=== PATIENT | female | born 1985 | race Caucasian/White ===

== ENCOUNTER 2019-03-12 11:30 | Day surgery (SDC) | payer OTHER ==
[2019-03-12] MEDS ORDERED: FENTAnyl 50 MCG/ML VIAL (13:43)
[2019-03-12] MEDS ORDERED: PROPOFOL 20 ML ×3 (13:43→14:09)
== END 2019-03-12 15:18 | disposition home or self-care (01) ==
LOC: GIL 11:30
DX: R19.4 Change in bowel habit (principal); K64.8 Other hemorrhoids; K21.9 Gastro-esophageal reflux disease without esophagitis; K31.7 Polyp of stomach and duodenum; K29.60 Other gastritis without bleeding; Z80.0 Family history of malignant neoplasm of digestive organs
CPT/HCPCS: 43239; 84703; 88305; 88312